=== PATIENT | female | born 1935 | race Caucasian/White ===

== ENCOUNTER 2016-08-10 21:26 | Observation (INO) | payer OTHER ==
[~2016-08-10] VITALS: Ht 157.5 cm; Wt 62.0 kg
[~2016-08-10 21:26] MED LIST: BENTYL20 MG PO; CHLORTHALIDONE50 MG PO; FIORICET,ESG1 TABLET PO; IMITREX; IMITREX100 MG PO; LIPITOR20 MG PO; SYNTHROID88 MCG PO
[2016-08-10 23:02] LABS: EOSINOPHIL (%) 2.1 % (0-5); EOSINOPHIL COUNT 0.2 K/uL (0-0.3); HEMATOCRIT 37.2 % (36.0-46.0); IMMATURE GRANULOCYTE (%) 0.3 % (0.0-0.7); INSTRUMENT ABS NEUTROPHIL CT 4.4 K/uL; MCHC 33.3 G/DL (30.0-36.0); MCV 95.9 FL (83-99); MEAN PLAT.VOLUME 11.3 uM^3 (9.5-12.4); MONOCYTE (%) 15.1 % (3-12); MONOCYTE COUNT 1.2 K/uL (0-0.8); NEUTROPHIL (%) 56.2 % (45-76); NEUTROPHIL COUNT 4.4 K/uL (1.8-6.4); PLATELET COUNT 178 K/uL (156-360); RBC DIS.WIDTH-CV 12.7 % (11.8-14.6); RBC DIS.WIDTH-SD 44.4 % (39-53); RED BLOOD COUNT 3.88 M/uL (3.80-5.20); WHITE BLOOD COUNT 7.7 K/uL (4.1-10.2)
[2016-08-10 23:12] LABS: CHLORIDE 103 mEq/L (99-109); POTASSIUM 3.9 mEq/L (3.7-5.4); SODIUM 139 mEq/L (136-147)
[2016-08-10 23:13] LABS: MAGNESIUM 2.3 mg/dL (1.3-2.7)
[2016-08-10 23:15] LABS: GLUCOSE 102 mg/dL (70-99)
[2016-08-10 23:16] LABS: ANION GAP 11 MEQ/L (2-14)
[2016-08-10 23:17] LABS: TOTAL BILIRUBIN 0.4 mg/dL (0.0-1.0)
[2016-08-10 23:18] LABS: ALKALINE PHOSPHATASE 67 IU/L (3-129); GFR ESTIMATE (CALCULATED) > 59 mL/min/
[2016-08-10 23:19] LABS: UREA NITROGEN (BUN) 12 mg/dL (9-23)
[2016-08-10 23:22] LABS: LIPASE 25 U/L (1.0-51.0)
[2016-08-10 23:27] LABS: TROP-I INTERPRETATION NEGATIVE; TROPONIN-I < 0.01 ng/mL (0.0-0.30)
[2016-08-11 00:36] LABS: ADD MIUA? NO; BILIRUBIN NEGATIVE; BLOOD NEGATIVE; COLOR STRAW ((YELLOW)); GLUCOSE (STRIP) NEGATIVE; KETONES NEGATIVE; LEUKOCYTES NEGATIVE; NITRITE NEGATIVE; PROTEIN (STRIP) NEGATIVE; UROBILINOGEN 0.2 MG/DL (0.2-1.0)
[2016-08-11 04:30] VITALS: BP 143/66
[2016-08-11 05:46] LABS: TROP-I INTERPRETATION NEGATIVE; TROPONIN-I < 0.01 ng/mL (0.0-0.30)
[2016-08-11 09:20] VITALS: BP 156/67
[2016-08-11 11:28] LABS: TROP-I INTERPRETATION NEGATIVE; TROPONIN-I < 0.01 ng/mL (0.0-0.30)
[2016-08-11 12:04] VITALS: BP 1152/67; BP 152/67
[2016-08-11 15:53] VITALS: BP 129/60
[2016-08-12] VITALS: BP 118/58
[2016-08-12 04:05] VITALS: BP 118/57
[2016-08-12 06:30] LABS: EOSINOPHIL (%) 3.3 % (0-5); EOSINOPHIL COUNT 0.2 K/uL (0-0.3); HEMATOCRIT 37.6 % (36.0-46.0); IMMATURE GRANULOCYTE (%) 0.4 % (0.0-0.7); INSTRUMENT ABS NEUTROPHIL CT 2.6 K/uL; LYMPHOCYTE COUNT 1.7 K/uL (1.0-2.8); MCH 32.7 PG (29.0-34.0); MCHC 33.5 G/DL (30.0-36.0); MCV 97.7 FL (83-99); MEAN PLAT.VOLUME 11.6 uM^3 (9.5-12.4); MONOCYTE (%) 12.1 % (3-12); MONOCYTE COUNT 0.6 K/uL (0-0.8); NEUTROPHIL (%) 50.7 % (45-76); NEUTROPHIL COUNT 2.6 K/uL (1.8-6.4); PLATELET COUNT 171 K/uL (156-360); RBC DIS.WIDTH-CV 12.8 % (11.8-14.6); RBC DIS.WIDTH-SD 46.1 % (39-53); RED BLOOD COUNT 3.85 M/uL (3.80-5.20); WHITE BLOOD COUNT 5.1 K/uL (4.1-10.2)
[2016-08-12 06:54] LABS: ANION GAP 9 MEQ/L (2-14); CHLORIDE 106 MEQ/L (99-109); GFR ESTIMATE (CALCULATED) > 59 mL/min/; GLUCOSE 100 mg/dL (70-99); POTASSIUM 3.7 MEQ/L (3.7-5.4); SAMPLE HEMOLYSIS CHECK 0; SAMPLE ICTERIC CHECK 0; SAMPLE LIPEMIA CHECK 0; SODIUM 142 MEQ/L (136-147); UREA NITROGEN (BUN) 7 mg/dL (9-23)
[2016-08-12 07:25] VITALS: BP 135/65
[2016-08-12] MEDS ORDERED: FLAGYL500 MG PO (10:15)
[2016-08-12] MEDS ORDERED: CIPRO500 MG PO (10:15)
[2016-08-12] MEDS ORDERED: BENTYL10 MG PO (10:18)
== END 2016-08-12 11:44 | disposition home or self-care (01) ==
LOC: EME 21:26 → EDOF 08-11 02:53 → 5WEST 08-11 03:45
PROVIDERS: Hospitalist; Physician Assistant; Student in an Organized Health Care Education/Training Program
DX: K57.32 Diverticulitis of large intestine without perforation or abscess without bleeding (principal); R10.30 Lower abdominal pain, unspecified; R07.89 Other chest pain; Z85.3 Personal history of malignant neoplasm of breast; E03.9 Hypothyroidism, unspecified; G43.909 Migraine, unspecified, not intractable, without status migrainosus; R11.0 Nausea; Z82.49 Family history of ischemic heart disease and other diseases of the circulatory system
CPT/HCPCS: 71010; 74177; 80048; 80053; 81003; 83605; 83690; 83735; 84484; 85025; 85027; 93005; 99281; 99285; G0378; J0744; J1644; J7030; S0030